=== PATIENT | male | born 1990 | race American Indian/Alaskan Native ===

== ENCOUNTER 2017-07-25 01:17 | Emergency (ER) | payer SELFPAY ==
[2017-07-25 01:37] VITALS: PULSE 75; TEMP 97.9
--- NOTE | 2017-07-25 01:45 | C.PDOC ---
History Of Present Illness pt was brought in because he was starring outside his hose. states he did pcp. denies any suicidal or homicidal ideation. Pleasant and cooperative Time Seen by Provider: 07/25/17 01:45 Chief Complaint (Nursing): Substance Abuse History Per: Patient History/Exam Limitations: no limitations Onset/Duration Of Symptoms: Hrs Current Symptoms Are (Timing): Better Suicide/Self Injury Attempted (Context): None Modifying Factor(s): Other (pcp) Severity: None Involuntary Hold By: None Recent travel outside of the [place]: No Additional History Per: Patient, EMS Past Medical History Reviewed: Historical Data, Nursing Documentation, Vital Signs Vital Signs: Last Vital Signs Temp 97.9 F 07/25/17 01:25 Pulse 75 07/25/17 01:25 Resp 20 07/25/17 01:25 BP 150/94 H 07/25/17 01:25 Pulse Ox 95 07/25/17 02:53 - Medical History PMH: Seizures - [facility] Procedures CLOSURE SKIN & SUBCUTANEOUS NEC (12/26/12) TETANUS TOXOID ADMINIST (12/26/12) Family History: States: No Known Family Hx - Social History Hx Alcohol Use: No (pt denies) Hx Substance Use: No (pt denies) Review Of Systems Constitutional: Negative for: Fever Cardiovascular: Negative for: Chest Pain Respiratory: Negative for: Shortness of Breath Gastrointestinal: Negative for: Nausea Genitourinary: Negative for: Dysuria Musculoskeletal: Negative for: Back Pain Skin: Negative for: Rash Neurological: Negative for: Weakness Psych: Negative for: Anxiety Physical Exam - Physical Exam Appears: Non-toxic, No Acute Distress Skin: Warm, Dry Head: Normacephalic Eye(s): bilateral: Normal Inspection Oral Mucosa: Moist Neck: Supple Chest: Symmetrical Cardiovascular: Rhythm Regular Respiratory: No Rales, No Rhonchi, No Wheezing Gastrointestinal/Abdominal: Soft, No Tenderness Back: Normal Inspection Extremity: Normal ROM Neurological/Psych: Oriented x3, Normal Speech, Normal Cognition Gait: Steady ED Course And Treatment O2 Sat by Pulse Oximetry: 95 Pulse Ox Interpretation: Normal Disposition Counseled Patient/Family Regarding: Studies Performed, Diagnosis, Need For Followup - Disposition Referrals: [facility] [Outside] Disposition: HOME/ ROUTINE Disposition Time: 01:45 Condition: FAIR Instructions: Polysubstance Abuse (ED) Forms: [facility] (Polish) - Clinical Impression Clinical Impression: PCP (phencyclidine) abuse
[2017-07-25 02:06] LABS: URINE COLOR STRAW (YELLOW)
[2017-07-25 02:07] LABS: PH,URINE 6.5 (5.0-8.0); URINE BILIRUBIN NEGATIVE (NEGATIVE); URINE BLOOD NEGATIVE (NEGATIVE); URINE GLUCOSE (UA) NEGATIVE (Normal); URINE KETONE NEGATIVE (NEGATIVE); URINE LEUKOCYTE ESTERASE NEGATIVE Leu/uL (Negative); URINE PROTEIN NEGATIVE (NEGATIVE); URINE UROBILINOGEN 0.2 mg/dL (0.2-1.0)
[2017-07-25 02:08] LABS: WBC URINE 1 /hpf (0-5)
[2017-07-25 02:59] VITALS: BP 124/71; RESP 19; O2SAT 98
== END 2017-07-25 03:00 | disposition home or self-care (01) ==
LOC: C.ER 01:17
DX: F16.10 Hallucinogen abuse, uncomplicated (principal)
CPT/HCPCS: 81001; 99283; G0480

== ENCOUNTER 2017-09-29 17:58 | Emergency (ER) | payer MEDICAID, OTHER ==
[2017-09-29 18:07] VITALS: BP 170/84; PULSE 81; RESP 20; TEMP 98.5; O2SAT 100
--- NOTE | 2017-09-29 21:10 | C.PDOC ---
History Of Present Illness 27 year old male is brought to the ED by EMS accompanied by the Police after being found wandering in the street. Patient states he [place] today in the park. Patient denies any drinking, other drug use, physical complaints. Chief Complaint (Nursing): Substance Abuse History Per: Patient History/Exam Limitations: no limitations Onset/Duration Of Symptoms: Hrs Current Symptoms Are (Timing): Still Present Suicide/Self Injury Attempted (Context): None Modifying Factor(s): Marijuana Severity: None Associated Symptoms: denies: Depression, Suicidal Thoughts, Suicidal Plan Involuntary Hold By: None Recent travel outside of the [place]: No Additional History Per: EMS, Law Enforcement Past Medical History Reviewed: Historical Data, Nursing Documentation, Vital Signs Vital Signs: Last Vital Signs Temp 98.5 F 09/29/17 18:04 Pulse 81 09/29/17 18:04 Resp 20 09/29/17 18:04 BP 170/84 H 09/29/17 18:04 Pulse Ox 100 09/29/17 21:12 - Medical History PMH: Seizures Surgical History: No Surg Hx - [facility] Procedures CLOSURE SKIN & SUBCUTANEOUS NEC (12/26/12) TETANUS TOXOID ADMINIST (12/26/12) Family History: States: Unknown Family Hx - Social History Hx Alcohol Use: No (pt denies) Hx Substance Use: No (pt denies) Review Of Systems Constitutional: Negative for: Fever, Chills Cardiovascular: Negative for: Chest Pain Respiratory: Negative for: Cough, Shortness of Breath Gastrointestinal: Negative for: Vomiting, Abdominal Pain Skin: Negative for: Rash Neurological: Negative for: Weakness, Numbness, Headache Psych: Negative for: Depression, Suicidal ideation Physical Exam - Physical Exam Appears: Non-toxic, No Acute Distress Skin: Normal Color, Warm, Dry Head: Atraumatic, Normacephalic Nose: No Discharge, No Deformity Oral Mucosa: Moist Neck: Normal ROM, Supple Chest: Symmetrical Cardiovascular: Rhythm Regular, No Murmur Respiratory: Normal Breath Sounds, No Rales, No Rhonchi, No Wheezing Gastrointestinal/Abdominal: Soft, No Tenderness, No Guarding, No Rebound Extremity: Normal ROM, No Tenderness, No Swelling Neurological/Psych: Oriented x3, Normal Speech, Normal Cognition Gait: Steady ED Course And Treatment O2 Sat by Pulse Oximetry: 100 (On RA) Pulse Ox Interpretation: Normal Disposition - Disposition Referrals: [facility] [Outside] [facility] [Outside] Disposition: HOME/ ROUTINE Disposition Time: 18:40 Condition: GOOD Additional Instructions: Thank you for letting us take care of you today. The emergency medical care you received today was directed at your acute symptoms. If you were prescribed any medication, please fill it and take as directed. It may take several days for your symptoms to resolve. Return to the Emergency Department if your symptoms worsen, do not improve, or if you have any other problems. Please contact your doctor or call one of the physicians/clinics you have been referred to that are listed on the Patient Visit Information form that is included in your discharge packet. Bring any paperwork you were given at discharge with you along with any medications you are taking to your follow up visit. Our treatment cannot replace ongoing medical care by a primary care provider (PCP) outside of the emergency department. Thank you for allowing the [facility] team to be part of your care today. Follow up with your doctor next week for re-evaluation and further management. Instructions: Cannabis Abuse (ED) Forms: [employer] (Latvian) - Clinical Impression Clinical Impression: Drug abuse - Scribe Statement The provider has reviewed the documentation as recorded by the Scribe Herbert Florentino All medical record entries made by the Scribe were at my direction and personally dictated by me. I have reviewed the chart and agree that the record accurately reflects my personal performance of the history, physical exam, medical decision making, and the department course for this patient. I have also personally directed, reviewed, and agree with the discharge instructions and disposition.
== END 2017-09-29 19:00 | disposition home or self-care (01) ==
LOC: C.ER 17:58
DX: F19.10 Other psychoactive substance abuse, uncomplicated (principal)

== ENCOUNTER 2018-10-03 17:52 | Emergency (ER) | payer OTHER ==
[2018-10-03 18:01] VITALS: BP 136/82; PULSE 87; TEMP 98.6; O2SAT 97
--- NOTE | 2018-10-03 18:33 | C.PDOC ---
History Of Present Illness 28 year old male is brought to the ED by police after patient was found smoking marijuana in public. Patient denies any pain, injuries or physical complaints at this time. Time Seen by Provider: 10/03/18 18:26 Chief Complaint (Nursing): Substance Abuse History Per: Patient History/Exam Limitations: no limitations Onset/Duration Of Symptoms: Hrs Current Symptoms Are (Timing): Still Present Modifying Factor(s): Marijuana Associated Symptoms: denies: Suicidal Thoughts, Suicidal Plan Involuntary Hold By: None Recent travel outside of the [place]: No Additional History Per: Patient, Law Enforcement Past Medical History Reviewed: Historical Data, Nursing Documentation, Vital Signs Vital Signs: Last Vital Signs Temp 98.6 F 10/03/18 17:58 Pulse 87 10/03/18 17:58 Resp 18 10/03/18 17:58 BP 136/82 10/03/18 17:58 Pulse Ox 97 10/03/18 17:58 - Medical History PMH: Seizures Surgical History: No Surg Hx - [facility] Procedures CLOSURE SKIN & SUBCUTANEOUS NEC (12/26/12) TETANUS TOXOID ADMINIST (12/26/12) Family History: States: Unknown Family Hx - Social History Hx Alcohol Use: Yes Hx Substance Use: Yes (marijuana use) - Immunization History Hx Tetanus Toxoid Vaccination: No Hx Influenza Vaccination: No Hx Pneumococcal Vaccination: No Review Of Systems Psych: Positive for: Other (marijuana use ). Negative for: Suicidal ideation Physical Exam - Physical Exam Additional Physical Exam Comments: Constitutional: No acute distress. Head: Normocephalic. Atraumatic. Eyes: PERRL. ENT: Moist mucous membranes. Neck: Supple. Cardiovascular: Regular rate. Radial pulse 2+ bilaterally. Chest: No tenderness. Respiratory: Clear to auscultation bilaterally. GI: Soft. Nontender. Nondistended. Back: No CVA tenderness. Musculoskeletal: No tenderness or swelling of extremities. Skin: No rash. Neurologic: Alert, no focal deficit. Steady gait. ED Course And Treatment O2 Sat by Pulse Oximetry: 97 (on RA) Pulse Ox Interpretation: Normal Medical Decision Making Medical Decision Making: Progress: Patient's mother is here to pick him up and take him home. Patient is resting comfortably, showing no signs of distress and is stable for discharge. Disposition - Disposition Disposition: HOME/ ROUTINE Disposition Time: 18:32 Condition: STABLE Instructions: Marijuana Forms: [employer] (Portuguese) - Clinical Impression Clinical Impression: Cannabis abuse - Scribe Statement The provider has reviewed the documentation as recorded by the Scribe (Marija Rodriguez) Provider Attestation: All medical record entries made by the Scribe were at my direction and personally dictated by me. I have reviewed the chart and agree that the record accurately reflects my personal performance of the history, physical exam, medical decision making, and the department course for this patient. I have also personally directed, reviewed, and agree with the discharge instructions and disposition.
[2018-10-03 18:38] VITALS: RESP 20
== END 2018-10-03 18:38 | disposition home or self-care (01) ==
LOC: C.ER 17:52
DX: F12.10 Cannabis abuse, uncomplicated (principal)